=== PATIENT | male | born 1950 | race African-American/Black ===

== ENCOUNTER 2018-09-19 11:38 | Observation (INO) ==
[2018-09-19] MEDS ORDERED: ASPIRIN 325 MG TABLET PO STA (12:42)
[2018-09-19] MEDS ORDERED: DILTIAZEM 50 MG/10 ML VIAL IV STA (12:42)
[2018-09-19] MEDS ORDERED: THIAMINE INJ 100 MG, FOLIC ACID INJ 1 MG, MAGNESIUM SULF INJ 2 GM, MULTIVITAMIN INJ 10 ... IV ONE (12:42)
[2018-09-19 12:54] LABS: Basophils # 0.1 10*3/uL (0.0-0.2); Eosinophils # 0.2 10*3/uL (0.0-0.87); Eosinophils % 2.8 % (0.00-10.9); Hematocrit 47.4 VOL% (42.0-52.0); Immature Granulocytes % 0.7 %; Immature Granulocytes Absolute 0.04 #; Lymphocytes # 2.6 10*3/uL (1.4-4.0); Lymphocytes % 44.9 % (21.2-54.2); Mean Corpuscular HGB Conc 33.8 GM/DL (32-36); Mean Corpuscular Hemoglobin 30 PG (27-34); Mean Corpuscular Volume 90.1 FL (87-102); Mean Platelet Volume 10.8 FL (9.6-12.0); Monocytes # 0.5 10*3/uL (0.11-0.8); Monocytes % 8.9 % (1.7-12.7); Neutrophils # 2.4 10*3/uL (1.4-7.4); Neutrophils % 41.7 % (38.7-73.9); Platelet Count 165 T/CUMM (130-400); Red Blood Count 5.26 MC/CUMM (3.8-5.5); Red Cell Distribution Width 15.4 % (9.3-17.3); White Blood Count 5.7 T/CUMM (4-12)
[2018-09-19 13:00] LABS: PT Patient Result 10.5 SECS
[2018-09-19 13:08] LABS: Albumin 3.9 G/DL (3.4-5.0); Bilirubin,Total 2.2 MG/DL (0.2-1.0); Calcium 8.6 MG/DL (8.5-10.1); Osmolality,Calculated 273.5 MOS/KG (273-304); Potassium 3.8 MMOL/L (3.5-5.1); Thyroid Stimulating Hormone 1.7 uIU/ml (0.358-3.74); Total Protein 7.1 G/DL (6.4-8.3)
[2018-09-19 13:33] LABS: Apearance,Urine CLEAR (Clear); Bilirubin,Urine Negative (Negative); Blood, Urine Small mg/dL (Negative); Glucose,Urine (UA) Negative (Negative); Hyaline Casts,Urine 5 /LPF (0-3); Ketones,Urine 80 mg/dL (Negative); Mucus,Urine Few /LPF (Occasional); Nitrite,Urine Negative (Negative); Protein,Urine 30 MG/DL; RBC,Urine <1 /HPF (0-4); Squamous Epithelial Cell,Urine Occasional /HPF (0-10); Urine Color Amber (Yellow); Urine Specific Gravity 1.028 (1.001-1.035); WBC,Urine 1 /HPF (0-6)
[2018-09-19 13:46] LABS: Barbiturates Screen,Urine Negative (Negative); Benzodiazepines Screen,Urine Negative (Negative); Cannabinoid Screen,Urine Negative (Negative); Opiate Screen,Urine Negative (Negative); Phencyclidine Screen,Urine Negative (Negative)
[2018-09-19] MEDS ORDERED: DEXTROSE 50% 25 GM/50 ML VIAL IV STA (13:53)
[2018-09-19] MEDS ORDERED: DEXTROSE 50% 25 GM/50 ML SYRINGE IV ONE (14:12)
[2018-09-19] MEDS ORDERED: ACETAMINOPHEN 325 MG TABLET PO PRN (14:34)
[2018-09-19] MEDS ORDERED: ONDANSETRON 4 MG/2 ML VIAL IV PRN (14:34)
[2018-09-19] MEDS ORDERED: LACTULOSE 20 GM/30 ML UDCUP PO PRN (14:34)
[2018-09-19] MEDS ORDERED: LORazepam 2 MG/1 ML VIAL IV PRN (14:37)
[2018-09-19 15:02] LABS: Risk Ratio 2.19; VLDL CHOLESTEROL 53.2 MG/DL
[2018-09-19] MEDS: ENOXAPARIN 60 MG/0.6 ML SYRINGE SUBCUT SCH (16:49)
[2018-09-19] MEDS: DILTIAZEM 60 MG TABLET PO SCH ×2 (16:49→21:31)
[2018-09-19] MEDS: SODIUM CHLORIDE 0.9% 1,000 ML IV SCH (16:50)
[2018-09-19] MEDS ORDERED: MAGNESIUM SULF RIDER 4 GM in PREMIX 1 EACH IV ONE (17:00)
[2018-09-19 20:29] LABS: Calcium 7.9 MG/DL (8.5-10.1); Osmolality,Calculated 271.1 MOS/KG (273-304)
[2018-09-20] MEDS: SODIUM CHLORIDE 0.9% 1,000 ML IV SCH ×2 (00:53→06:31)
[2018-09-20 05:27] LABS: Albumin 2.9 G/DL (3.4-5.0); Calcium 7.7 MG/DL (8.5-10.1); Osmolality,Calculated 268.1 MOS/KG (273-304); Potassium 3.8 MMOL/L (3.5-5.1); Total Protein 5.6 G/DL (6.4-8.3)
[2018-09-20] MEDS: ENOXAPARIN 60 MG/0.6 ML SYRINGE SUBCUT SCH (06:30)
[2018-09-20] MEDS: DILTIAZEM 60 MG TABLET PO SCH (08:39)
[2018-09-20] MEDS ORDERED: PANTOPRAZOLE 40 MG TABLET PO SCH (09:00)
[2018-09-20 12:13] VITALS: BP 107/70
== END 2018-09-20 15:55 | disposition home or self-care (01) ==
LOC: N.EDINP 11:38 → N.ED 11:38 → N.EDINP 15:40 → N.TELEN 16:12
PROVIDERS: ADMIT Internal Medicine; ATTEND Internal Medicine

== ENCOUNTER 2020-11-02 18:02 | Observation (INO) ==
[2020-11-02 18:26] LABS: Basophils # 0.1 10*3/uL (0.0-0.2); Basophils % 0.3 % (0.0-0.8); Eosinophils % 0.1 % (0.00-10.9); Hematocrit 38.9 VOL% (42.0-52.0); Hemoglobin 13.1 GM/DL (14.0-18.0); Immature Granulocytes Absolute 0.15 #; Lymphocytes % 6.3 % (21.2-54.2); Mean Corpuscular HGB Conc 33.7 GM/DL (32-36); Mean Corpuscular Volume 94.6 FL (87-102); Monocytes % 4.8 % (1.7-12.7); Neutrophils % 87.5 % (38.7-73.9); Platelet Count 106 T/CUMM (130-400); Red Blood Count 4.11 MC/CUMM (3.8-5.5); Red Cell Distribution Width 13.8 % (9.3-17.3); White Blood Count 15.5 T/CUMM (4-12)
[2020-11-02] MEDS ORDERED: SODIUM CHLORIDE 0.9% 500 ML IV STA (18:36)
[2020-11-02] MEDS ORDERED: MECLIZINE 25 MG TABLET PO STA (18:36)
[2020-11-02 18:51] LABS: Albumin 3.1 G/DL (3.4-5.0); Bilirubin,Total 2.7 MG/DL (0.2-1.0); Calcium 7.5 MG/DL (8.5-10.1); Osmolality,Calculated 270.8 MOS/KG (273-304); Potassium 3.8 MMOL/L (3.5-5.1); Total Protein 5.9 G/DL (6.4-8.2)
[2020-11-02 18:58] LABS: INR 1.2; PT Patient Result 12.4 SECS (9.8-11.9)
[2020-11-02] MEDS ORDERED: MAGNESIUM SULF RIDER 2 GM in PREMIX 1 EACH IV STA (19:06)
[2020-11-02] MEDS ORDERED: MAGNESIUM SULF RIDER 4 GM in PREMIX 1 EACH IV PRN (20:13)
[2020-11-02] MEDS ORDERED: POTASSIUM CHLORIDE 20 MEQ TABLET PO PRN (20:13)
[2020-11-02] MEDS ORDERED: LORazepam 2 MG/1 ML VIAL IV PRN ×2 (20:14)
[2020-11-02] MEDS ORDERED: THIAMINE INJ 100 MG, FOLIC ACID INJ 1 MG, MULTIVITAMIN INJ 10 ML in SODIUM CHLORIDE 0.9... IV ONE (20:15)
[2020-11-02 20:16] LABS: Barbiturates Screen,Urine Negative (Negative); Benzodiazepines Screen,Urine Negative (Negative); Cannabinoid Screen,Urine Negative (Negative); Opiate Screen,Urine Negative (Negative); Phencyclidine Screen,Urine Negative (Negative)
[2020-11-02] MEDS ORDERED: traZODone 50 MG TABLET PO PRN (20:18)
[2020-11-02] MEDS ORDERED: DEXTROSE 50% 25 GM/50 ML VIAL IV PRN (20:18)
[2020-11-02] MEDS ORDERED: ACETAMINOPHEN 325 MG TABLET PO PRN (20:18)
[2020-11-02] MEDS ORDERED: GLUCAGON 1 MG VIAL IM PRN (20:18)
[2020-11-02] MEDS ORDERED: ONDANSETRON 4 MG/2 ML VIAL IV PRN (20:18)
[2020-11-02] MEDS ORDERED: DOCUSATE SODIUM 100 MG CAPSULE PO PRN (20:18)
[2020-11-02 20:25] LABS: Bilirubin,Urine Negative (Negative); Blood, Urine Negative (Negative); Glucose,Urine (UA) Negative (Negative); Ketones,Urine 20 mg/dL (Negative); Mucus,Urine Occasional /LPF (Occasional); Nitrite,Urine Negative (Negative); Protein,Urine Negative; RBC,Urine 1 /HPF (0-4); Urine Appearance CLEAR (Clear); Urine Color Yellow (Yellow); Urine Specific Gravity 1.006 (1.001-1.035); WBC,Urine 1 /HPF (0-6)
[2020-11-02] MEDS ORDERED: PIPERACILLIN/TAZOBACTAM 3,375 MG in SODIUM CHLORIDE 0.9% 100 ML IV STA (20:26)
[2020-11-02] MEDS ORDERED: SODIUM CHLORIDE 0.9% 1,000 ML IV STA (20:26)
[2020-11-02] MEDS ORDERED: CALCIUM GLUCONATE 1,000 MG in SODIUM CHLORIDE 0.9% 100 ML IV ONE (21:58)
[2020-11-02] MEDS ORDERED: NICOTINE 21 MG/24 HR PATCH TRANSDERM PRN (22:19)
[2020-11-02] MEDS: SODIUM CHLORIDE 0.9% 1,000 ML IV SCH (22:49)
[2020-11-02] MEDS: ENOXAPARIN 40 MG/0.4 ML SYRINGE SUBCUT SCH (23:00)
[2020-11-03 05:58] LABS: Basophils % 0.4 % (0.0-0.8); Eosinophils # 0.1 10*3/uL (0.0-0.87); Hematocrit 33.8 VOL% (42.0-52.0); Hemoglobin 11.8 GM/DL (14.0-18.0); Immature Granulocytes % 0.3 %; Immature Granulocytes Absolute 0.02 #; Lymphocytes % 28.6 % (21.2-54.2); Mean Corpuscular HGB Conc 34.9 GM/DL (32-36); Mean Corpuscular Volume 92.6 FL (87-102); Neutrophils % 63.7 % (38.7-73.9); Red Blood Count 3.65 MC/CUMM (3.8-5.5); Red Cell Distribution Width 13.6 % (9.3-17.3); White Blood Count 6.9 T/CUMM (4-12)
[2020-11-03 06:00] LABS: Platelet Count 80 T/CUMM (130-400)
[2020-11-03 06:16] LABS: Albumin 2.3 G/DL (3.4-5.0); Calcium 7.2 MG/DL (8.5-10.1); Osmolality,Calculated 278.1 MOS/KG (273-304); Potassium 3.4 MMOL/L (3.5-5.1)
[2020-11-03 06:20] LABS: Hypochromasia 1+; Microcytosis Slight; Target Cells Slight
[2020-11-03 06:21] LABS: Platelet Estimate Decreased
[2020-11-03] MEDS: FOLIC ACID 1 MG TABLET PO SCH (09:21)
[2020-11-03] MEDS: MULTIVITAMIN (CENTRUM) TABLET PO SCH (09:21)
[2020-11-03] MEDS: SODIUM CHLORIDE 0.9% 1,000 ML IV SCH ×2 (09:22→21:48)
[2020-11-03] MEDS: THIAMINE 100 MG TABLET PO SCH (09:22)
[2020-11-03] MEDS: MAGNESIUM SULF RIDER 2 GM in PREMIX 1 EACH IV PRN ×2 (09:22→15:36)
[2020-11-03] MEDS ORDERED: POTASSIUM CHLORIDE 20 MEQ TABLET PO ONE (10:08)
[2020-11-03] MEDS ORDERED: MAGNESIUM SULF RIDER 4 GM in PREMIX 1 EACH IV ONE (10:09)
[2020-11-03] MEDS: ASPIRIN 325 MG TABLET PO SCH (10:29)
[2020-11-03] MEDS: LOSARTAN 50 MG TABLET PO SCH (10:29)
[2020-11-03] MEDS: DILTIAZEM CD 240 MG CAPSULE PO SCH (10:29)
[2020-11-03] MEDS: POTASSIUM CHLORIDE RIDER 10 MEQ in PREMIX 1 EACH IV SCH ×2 (11:58→12:57)
[2020-11-03] MEDS: carvediloL 3.125 MG TABLET PO SCH (20:32)
[2020-11-03] MEDS: ENOXAPARIN 40 MG/0.4 ML SYRINGE SUBCUT SCH (20:32)
[2020-11-03] MEDS ORDERED: ROSUVASTATIN 20 MG TABLET PO SCH (21:00)
[2020-11-04] MEDS: SODIUM CHLORIDE 0.9% 1,000 ML IV SCH ×2 (05:24→13:49)
[2020-11-04 05:52] LABS: Calcium 7.7 MG/DL (8.5-10.1); Osmolality,Calculated 267.1 MOS/KG (273-304); Potassium 4.3 MMOL/L (3.5-5.1)
[2020-11-04] MEDS: ASPIRIN 325 MG TABLET PO SCH (09:02)
[2020-11-04] MEDS: DILTIAZEM CD 240 MG CAPSULE PO SCH (09:02)
[2020-11-04] MEDS: THIAMINE 100 MG TABLET PO SCH (09:02)
[2020-11-04] MEDS: FOLIC ACID 1 MG TABLET PO SCH (09:02)
[2020-11-04] MEDS: MULTIVITAMIN (CENTRUM) TABLET PO SCH (09:02)
[2020-11-04] MEDS: LOSARTAN 50 MG TABLET PO SCH (09:03)
[2020-11-04] MEDS: carvediloL 3.125 MG TABLET PO SCH (09:03)
[2020-11-04 12:22] VITALS: BP 128/83
== END 2020-11-04 14:30 | disposition home or self-care (01) ==
LOC: N.EDINP 18:02 → N.ED 18:02 → N.EDINP 21:52 → N.TELEN 22:46
PROVIDERS: ADMIT Internal Medicine; ATTEND Internal Medicine